=== PATIENT | female | born 1975 | race Two or more races ===

== ENCOUNTER 2020-12-30 18:58 | Emergency (ER) | payer MEDICAID ==
[~2020-12-30] VITALS: Ht 162.6 cm; Wt 72.6 kg
--- NOTE | 2020-12-30 19:55 | NUR ---
PT AAOX4. BIBSELF C/O SI WITH PLAN TO OD ON MEDS. REQUESTING VOL. PSYCH ADMISSION TO [facility]. PLACED IN A GOWN, ON MONITOR, AND PULSE OX. AWAITING ER MD FOR EVAL AND ORDERS.
--- NOTE | 2020-12-30 20:08 | NUR ---
URINE SPECIMEN COLLECTED AND SENT TO LAB.
[2020-12-30 20:43] LABS: BILIRUBIN,URINE NEGATIVE (NEGATIVE); COLOR,URINE YELLOW (YELLOW); LEUKOCYTE ESTERASE ,URINE NEGATIVE (NEGATIVE); NITRITE, URINE NEGATIVE (NEGATIVE); PROTEIN,URINE NEGATIVE (NEGATIVE); UGLUCOSE NEGATIVE (NEGATIVE); UROBILINOGEN,URINE 0.2 EU/dL (0.2)
[2020-12-30 20:56] LABS: BACTERIA,URINE 2+ /HPF (None Seen); WBC,URINE 0-2 /HPF (0-3)
[2020-12-30 20:56] LABS: BASOPHILS % (AUTO) 0.6 % (0.0-2.0); EOSINOPHILS % (AUTO) 1.7 % (0.0-6.0); HEMATOCRIT 36 % (33-45); HEMOGLOBIN 11.9 g/dL (11.5-14.8); LYMPHOCYTES # (AUTO) 1.4 K/uL (0.8-4.8); LYMPHOCYTES % (AUTO) 17.7 % (20.0-44.0); MEAN CORPUSCULAR HGB CONC 33 g/dl (31.0-36.0); MEAN CORPUSCULAR VOLUME 85 fL (82-100); MONOCYTES # (AUTO) 0.6 K/uL (0.1-1.30); NEUTROPHILS # (AUTO) 5.9 K/uL (1.8-8.9); PLATELET COUNT (AUTO) 344 K/uL (150-450); RED BLOOD CELL COUNT(AUTO) 4.29 MIL/uL (4.0-5.2); WHITE BLOOD COUNT (AUTO) 8.1 K/uL (4.3-11.0)
[2020-12-30] MEDS ORDERED: OLANZAPINE 5 MG TABLET PO ONE (21:00)
[2020-12-30 21:05] LABS: CHLORIDE 101 mmol/L (98-107)
[2020-12-30 21:20] LABS: ALKALINE PHOSPHATASE 93 U/L (46-116); BILIRUBIN,DIRECT 0.1 mg/dL (0.0-0.2); BILIRUBIN,TOTAL 0.2 mg/dL (0.2-1.0)
[2020-12-30 21:25] LABS: ACETAMINOPHEN 0 ug/ml (10-30); ALCOHOL, BLOOD < 3 mg/dL (0-0)
[2020-12-30] MEDS: IV NS 0.9% 1,000 ML BAG IV ONE (22:10)
--- NOTE | 2020-12-30 22:31 | NUR ---
FACESHEET AND CLINICALS FAXED TO [facility].
--- NOTE | 2020-12-30 23:10 | NUR ---
SPOKE WITH ART FROM [facility]. PT CANNOT BE ACCEPTED WITHOUT AUTHORIZATION FROM [facility]
[2020-12-30 23:14] LABS: CALCIUM, SERUM 8.6 mg/dL (8.5-10.1); CARBON DIOXIDE 21 mmol/L (21-32); GLUCOSE 106 mg/dL (74-106); POTASSIUM 4.3 mmol/L (3.5-5.1); SODIUM SERUM 134 mmol/L (136-145)
[2020-12-30 23:15] LABS: ALANINE AMINOTRANSFERASE 59 U/L (12-78); ALBUMIN 3.8 g/dL (3.4-5.0); ASPARTATE AMINOTRANSFERASE 29 U/L (15-37); CREATININE 0.9 mg/dL (0.6-1.3); TOTAL PROTEIN, SERUM 7.5 g/dL (6.4-8.2); UREA NITROGEN, BLOOD 13 mg/dL (7-18)
--- NOTE | 2020-12-31 01:06 | NUR ---
W[facility]IS[facility] TEAM AT BEDSIDE FOR EVAL.
[2020-12-31] MEDS: ZOLPIDEM TARTRATE 5 MG TABLET PO ONE (01:39)
[2020-12-31] MEDS: ZOLPIDEM TARTRATE 10 MG TABLET ONE (01:40)
--- NOTE | 2020-12-31 07:35 | NUR ---
PT AWAKE, BREAKFAST TRAY PROVIDED. STABLE VITALS. SITTER AT BEDSIDE.
--- NOTE | 2020-12-31 09:20 | NUR ---
SLEEPING, EASILY AROUSABLE. VITALS STABLE. WILL CONTINUE TO MONITOR.
--- NOTE | 2020-12-31 09:42 | NUR ---
LEFT MESSAGE TO [facility]S [employer] REGARDING PLAN OF CARE.
--- NOTE | 2020-12-31 09:52 | NUR ---
FAXED FACE SHEET AND CLINICALS OF PT TO [facility].
--- NOTE | 2020-12-31 10:53 | NUR ---
CALLED [facility] AND VERIFIED THAT THEY HAVE RECIEVED THE FACE SHEET AND CLINICALS.
--- NOTE | 2020-12-31 18:12 | NUR ---
ACCEPTED AT [facility] ACCEPTED BY DR ALBA, GOING TO [address] A REPORT TO [phone]
--- NOTE | 2020-12-31 18:16 | NUR ---
CALLED [facility] [phone] FOR TRANSPORT. [facility] CONFIRMED ETA OF 1925.
[2020-12-31 19:23] VITALS: BP 110/50
== END 2020-12-31 19:45 ==
LOC: ER 19:01
DX: R45.851 Suicidal ideations (principal); F31.9 Bipolar disorder, unspecified; E87.1 Hypo-osmolality and hyponatremia; Z20.822 Contact with and (suspected) exposure to COVID-19; G47.00 Insomnia, unspecified; Z91.14 Patient's other noncompliance with medication regimen
CPT/HCPCS: 36415; 80048; 80076; 80143; 80307; 80320; 81001; 84703; 85025; 87086; 87426; 96360; 99285; C9803; J7030; G0480

== ENCOUNTER 2024-10-19 15:55 | Emergency (ER) | payer MEDICAID ==
[~2024-10-19] VITALS: Ht 154.9 cm; Wt 72.6 kg
[2024-10-19 16:49] LABS: PLATELET COUNT (AUTO) 241 K/uL (150-450); RED BLOOD CELL COUNT(AUTO) 4.30 MIL/uL (4.0-5.2); RED CELL DISTRIBUTION WIDTH 13.2 % (11.5-15.0); WHITE BLOOD COUNT (AUTO) 7.1 K/uL (4.3-11.0)
[2024-10-19 17:02] LABS: CALCIUM, SERUM 8.8 mg/dL (8.5-10.1); CREATININE 0.8 mg/dL (0.6-1.3); SODIUM SERUM 140 mmol/L (136-145); UREA NITROGEN, BLOOD 16 mg/dL (7-18)
[2024-10-19 17:08] LABS: INR 0.95 (0.91-1.10)
[2024-10-19 17:15] LABS: ASPARTATE AMINOTRANSFERASE 19 U/L (15-37); NT-PRO BNP 21 pg/mL (0-125); TOTAL PROTEIN, SERUM 7.5 g/dL (6.4-8.2)
[2024-10-19 19:57] VITALS: BP 106/60; TEMP 98.1; O2SAT 98
== END 2024-10-19 19:57 ==
LOC: ER 16:00
DX: S00.83XA Contusion of other part of head, initial encounter (principal); F31.9 Bipolar disorder, unspecified; W18.39XA Other fall on same level, initial encounter; Y93.89 Activity, other specified; Y92.89 Other specified places as the place of occurrence of the external cause; Y99.8 Other external cause status
CPT/HCPCS: 36415; 70450-TC; 71045-TC; 80048-TC; 80076-TC; 82962-TC; 83880; 84484-TC; 85025-TC; 85730-TC; 86850-TC